=== PATIENT | female | born 1995 | race Caucasian/White ===

== ENCOUNTER 2017-06-13 18:06 | Emergency (ER) | payer BC, OTHER ==
[~2017-06-13] VITALS: Ht 149.9 cm; Wt 70.0 kg
[~2017-06-13 18:06] MED LIST: IBUP600T26 PO
[2017-06-13] MEDS: IOHEXOL 350 MG/ML 10 ML VIAL (for RAD DIAG) IVCONTRAST ONE (18:07)
[2017-06-13 18:15] VITALS: BP 155/88; PULSE 80; RESP 16; TEMP 98.2; O2SAT 100
[2017-06-13 18:39] LABS: BILIRUBIN, URINE NEG (NEG); BLOOD, URINE LARGE (NEG); GLUCOSE,URINE NEG (NEG); KETONE, URINE NEG (NEG); NITRITE,URINE NEG (NEG); URINE LEUKOCYTE ESTERASE TRACE (NEG)
[2017-06-13 18:51] LABS: BACTERIA, URINE MANY /hpf; URINE COLOR YELLOW (YELLW/STRAW)
[2017-06-13] MEDS ORDERED: SODIUM CHLOR 0.9% 1000 ML INJ 1,000 ML IV SCH (18:56)
[2017-06-13] MEDS ORDERED: ONDANSETRON HCL 4 MG/2 ML VIAL IV PUSH ONE (19:00)
[2017-06-13] MEDS ORDERED: KETOROLAC TROMETHAMINE 30 MG/ML (IVP) VIAL IV PUSH ONE (19:00)
[2017-06-13 19:20] VITALS: BP 118/83; PULSE 84; RESP 16; O2SAT 99
[2017-06-13] MEDS ORDERED: IOHEXOL 350 MG/ML 10 ML VIAL (for RAD DIAG) IVCONTRAST ONE (19:28)
[2017-06-13 19:43] LABS: BASOPHIL # 0.1 TH/MM3 (0-0.2); BASOPHIL % 0.4 % (0.0-2.0); EOSINOPHIL # 0.1 TH/MM3 (0-0.4); EOSINOPHIL % 0.5 % (0.0-4.0); HEMOGLOBIN 13.7 GM/DL (11.6-15.3); LYMPH % 20.6 % (9.0-44.0); LYMPHOCYTE # 2.9 TH/MM3 (1.0-4.8); MEAN CELL VOLUME 83.3 FL (80.0-100.0); MEAN CORPUSCULAR HEMOGLOBIN 27.2 PG (27.0-34.0); MEAN CORPUSCULAR HGB CONC 32.7 % (32.0-36.0); MEAN PLATELET VOLUME 8.3 FL (7.0-11.0); MONO % 5.4 % (0.0-8.0); MONOCYTE # 0.8 TH/MM3 (0-0.9); NEUT % 73.1 % (16.0-70.0); PLATELET COUNT 419 TH/MM3 (150-450); RED BLOOD COUNT 5.04 MIL/MM3 (4.00-5.30); RED CELL DISTRIBUTION WIDTH 12.6 % (11.6-17.2); WHITE BLOOD COUNT 13.9 TH/MM3 (4.0-11.0)
[2017-06-13 19:51] LABS: CHLORIDE 102 MEQ/L (98-107); SODIUM (NA) 136 MEQ/L (136-145)
[2017-06-13 19:54] LABS: ALBUMIN 4.2 GM/DL (3.4-5.0); CALCIUM 9.2 MG/DL (8.5-10.1); GLUCOSE,RANDOM 90 MG/DL (74-106)
[2017-06-13 19:55] LABS: BLOOD UREA NITROGEN 9 MG/DL (7-18)
[2017-06-13 19:57] LABS: ALT (GPT) 35 U/L (10-53); AST (GOT) 27 U/L (15-37)
[2017-06-13 19:58] LABS: CREATININE 0.73 MG/DL (0.50-1.00); GLOMERULAR FILTRATION RATE 100 ML/MIN (>89)
[2017-06-13 19:59] LABS: TOTAL BILIRUBIN ADULT 0.4 MG/DL (0.2-1.0); TOTAL PROTEIN 8.3 GM/DL (6.4-8.2)
[2017-06-13 20:00] LABS: ALKALINE PHOSPHATASE 97 U/L (45-117)
--- NOTE | 2017-06-13 20:00 | PD ---
HPI Chief Complaint: Flank/Kidney Pain Time Seen by Provider: 18:43 Travel History International Travel<30 days: No Contact w/Intl Traveler<30days: No Traveled to known affect area: No History of Present Illness HPI This is a 21-year-old female who presents for evaluation of right-sided lower back pain. Symptoms started 3 days ago. She describes it as a sharp pain which is constant with no obvious aggravating or alleviating factors. She denies nausea, vomiting, dysuria, fevers or chills, vaginal bleeding or discharge. She reports that she did have small amount of hematuria 2 days ago but no obvious gross hematuria since then. She has no other complaints at this time. [facility] Past Medical History Medical History: Denies Significant Hx Tetanus Vaccination: > 5 Years Influenza Vaccination: No ?: Not LMP: End April Past Surgical History Surgical History: No Previous Surgery Social History Alcohol Use: No Tobacco Use: No Substance Use: No Allergies-Medications (Allergen,Severity, Reaction): Coded Allergies: No Known Allergies (Unverified Adverse Reaction, Unknown, 06/13/17) Reported Meds & Prescriptions Reported Meds & Active Scripts Active Cephalexin Liq (Cephalexin Monohydrate) 250 Mg/5 Ml Susp 500 Mg PO BID 7 Days Review of Systems Except as stated in HPI: all other systems reviewed are Neg Physical Exam Narrative GENERAL: Well-developed well-nourished female in no acute distress SKIN: Warm and dry. HEAD: Atraumatic. Normocephalic. EYES: Pupils equal and round. No scleral icterus. No injection or drainage. ENT: No nasal bleeding or discharge. Mucous membranes pink and moist. NECK: Trachea midline. No JVD. CARDIOVASCULAR: Regular rate and rhythm. No murmur appreciated. RESPIRATORY: No accessory muscle use. Clear to auscultation. Breath sounds equal bilaterally. GASTROINTESTINAL: Abdomen soft, mild focal right lower quadrant tenderness to palpation without guarding. There is no CVA tenderness. MUSCULOSKELETAL: No obvious deformities. There is no reproducible tenderness to palpation along the spine or paravertebral musculature. NEUROLOGICAL: Awake and alert. No obvious cranial nerve deficits. Motor grossly within normal limits. Normal speech. PSYCHIATRIC: Appropriate mood and affect; insight and judgment normal. Data Data Last Documented VS Vital Signs Date Time Temp Pulse Resp B/P (MAP) Pulse Ox O2 Delivery O2 Flow Rate FiO2 06/13/17 20:15 16 06/13/17 19:20 84 118/83 (95) 99 Room Air 06/13/17 18:15 98.2 Orders Orders Urinalysis - C+S If Indicated (06/13/17 18:26) Ed Urine Pregnancytest Poc (06/13/17 18:26) Urine Culture (06/13/17 18:36) Complete Blood Count With Diff (06/13/17 18:56) Comprehensive Metabolic Panel (06/13/17 18:56) Iv Access Insert/Monitor (06/13/17 18:56) Ketorolac Inj (Toradol Inj) (06/13/17 19:00) Ondansetron Inj (Zofran Inj) (06/13/17 19:00) Sodium Chlor 0.9% 1000 Ml Inj (Ns 1000 M (06/13/17 18:56) Ct Abd/Pel W Iv Contrast(Rout) (06/13/17 19:03) Iohexol 350 Inj (Omnipaque 350 Inj) (06/13/17 18:07) Cephalexin (Keflex) (06/13/17 20:45) Ed Discharge Order (06/13/17 20:32) Potassium Chloride (Kcl) (06/13/17 20:45) Cephalexin 250 Mg/5 Ml Liq (Keflex 250 M (06/13/17 20:45) Labs Laboratory Tests Test 06/13/17 18:36 06/13/17 19:15 Urine Color YELLOW Urine Turbidity HAZY Urine pH 6.0 Urine Specific Yoder 1.015 Urine Protein 100 mg/dL Urine Glucose (UA) NEG mg/dL Urine Ketones NEG mg/dL Urine Occult Blood LARGE Urine Nitrite NEG Urine Bilirubin NEG Urine Leukocyte Esterase TRACE Urine RBC 50-99 /hpf Urine WBC 9-14 /hpf Urine Squamous Epithelial Cells 6-8 /hpf Urine Bacteria MANY /hpf Microscopic Urinalysis Comment CULTURE INDICATED White Blood Count 13.9 TH/MM3 Red Blood Count 5.04 MIL/MM3 Hemoglobin 13.7 GM/DL Hematocrit 42.0 % Mean Corpuscular Volume 83.3 FL Mean Corpuscular Hemoglobin 27.2 PG Mean Corpuscular Hemoglobin Concent 32.7 % Red Cell Distribution Width 12.6 % Platelet Count 419 TH/MM3 Mean Platelet Volume 8.3 FL Neutrophils (%) (Auto) 73.1 % Lymphocytes (%) (Auto) 20.6 % Monocytes (%) (Auto) 5.4 % Eosinophils (%) (Auto) 0.5 % Basophils (%) (Auto) 0.4 % Neutrophils # (Auto) 10.0 TH/MM3 Lymphocytes # (Auto) 2.9 TH/MM3 Monocytes # (Auto) 0.8 TH/MM3 Eosinophils # (Auto) 0.1 TH/MM3 Basophils # (Auto) 0.1 TH/MM3 CBC Comment DIFF FINAL Differential Comment Blood Urea Nitrogen 9 MG/DL Creatinine 0.73 MG/DL Random Glucose 90 MG/DL Total Protein 8.3 GM/DL Albumin 4.2 GM/DL Calcium Level 9.2 MG/DL Alkaline Phosphatase 97 U/L Aspartate Amino Transf (AST/SGOT) 27 U/L Alanine Aminotransferase (ALT/SGPT) 35 U/L Total Bilirubin 0.4 MG/DL Sodium Level 136 MEQ/L Potassium Level 3.3 MEQ/L Chloride Level 102 MEQ/L Carbon Dioxide Level 26.0 MEQ/L Anion Gap 8 MEQ/L Estimat Glomerular Filtration Rate 100 ML/MIN [facility] Medical Decision Making Medical Screen Exam Complete: Yes Emergency Medical Condition: Yes Medical Record Reviewed: Yes Interpretation(s) CONCLUSION: 1. No acute abnormality. 2. Trace amount of free fluid within the cul-de-sac. Differential Diagnosis Ureteral stone, appendicitis, ovarian torsion, colitis, diverticulitis, cystitis , pyelonephritis Narrative Course 21-year-old female with 3 days of right-sided lower back pain with no obvious aggravating factors. On examination she has mild reproducible tenderness to palpation of the right lower quadrant, no CVA tenderness or reproducible back tenderness. Urinalysis reveals large leukocytes with 9-14 wbc's, somewhat contaminated with 6 squamous epithelial cells, many bacteria, cultures pending. CT of the abdomen and pelvis is been ordered to rule out ureteral stone, appendicitis. I doubt tubo-ovarian abscess, ovarian torsion or other pelvic etiology based on examination. CBC reveals leukocytosis with WBC count of 13.9. Potassium is 3.3, otherwise CMP is unremarkable. The CT of the abdomen and pelvis reveals trace out of fluid within the cul-de-sac, no acute abnormalities. Patient was given Toradol and IV fluids with significant improvement of her symptoms. On reexamination her symptoms are minimal. The patient will be treated with Keflex for her pyuria/hematuria pending urine culture results. I did discuss signs and symptoms that would warrant returning to the emergency room. She is stable for discharge. Diagnosis Primary Impression: Cystitis Additional Impression: Hematuria Additional Instructions: Medication as prescribed. Take [id number] Tylenol or Motrin for pain. Stay well hydrated well-nourished. Return for any acutely or worsening symptoms such as severe abdominal pain, fevers, intractable vomiting. Med/Other Pt SpecificInfo: Prescription(s) given Scripts Cephalexin Liq (Cephalexin Liq) 250 Mg/5 Ml Susp 500 MG PO BID for Infection for 7 Days, #140 ML 0 Refills Prov: Kimo Bryant MD 06/13/17 Disposition: 01 DISCHARGE HOME Condition: Stable Eulalio Gonzales Jun 13, 2017 20:00
--- NOTE | 2017-06-13 20:24 | RADRPT ---
EXAM DATE/TIME: 06/13/2017 19:28 [place] COMPARISON: No previous studies available for comparison. INDICATIONS : Rigjt flank pain for 3 days IV CONTRAST: 96 cc Omnipaque 350 (iohexol) IV ORAL CONTRAST: No oral contrast ingested. RADIATION DOSE: 6.86 CTDIvol (mGy) ; Patient motion MEDICAL HISTORY : None SURGICAL HISTORY : None. ENCOUNTER: Initial ACUITY: 3 days PAIN SCALE: 9/10 LOCATION: Right flank TECHNIQUE: Volumetric scanning of the abdomen and pelvis was performed. Using automated exposure control and ad justment of the mA and/or kV according to patient size, radiation dose was kept as low as reasonably achievable to obtain optimal diagnostic quality images. DICOM format image data is available electro nically for review and comparison. FINDINGS: LOWER LUNGS: The visualized lower lungs are clear. LIVER: Homogeneous density without lesion. There is no dilation of the biliary tree. No calcified gallston es. SPLEEN: Normal size without lesion. PANCREAS: Within normal limits. KIDNEYS: Normal in size and shape. There is no mass, stone or hydronephrosis. ADRENAL GLANDS: Within normal limits. VASCULAR: There is no aortic aneurysm. BOWEL/MESENTERY: The stomach, small bowel, and colon demonstrate no acute abnormality. There is no free intraperitone al air. Trace amount of free fluid within the cul-de-sac. Appendix is normal by CT criteria. ABDOMINAL WALL: Within normal limits. RETROPERITONEUM: There is no lymphadenopathy. BLADDER: No wall thickening or mass. REPRODUCTIVE: Within normal limits. INGUINAL: There is no lymphadenopathy or hernia. MUSCULOSKELETAL: Within normal limits for patient age. CONCLUSION: 1. No acute abnormality. 2. Trace amount of free fluid within the cul-de-sac. Magdi Salazar Jr., MD on June 13, 2017 at 20:20 Board Certified Radiologist. This report was verified electronically.
[2017-06-13] MEDS ORDERED: CEPH-460 PO (20:33)
[2017-06-13] MEDS ORDERED: CEPHALEXIN MONOHYDRATE 500 MG CAP PO ONE (20:45)
[2017-06-13] MEDS ORDERED: POTASSIUM CHLORIDE 20 MEQ CONTROLLED RELEASE TAB PO ONE (20:45)
[2017-06-13] MEDS ORDERED: CEPHALEXIN MONOHYDRATE SUSP 250 MG/5 ML 100 ML BTL PO ONE (20:45)
[2017-06-13] MEDS ORDERED: CEPH250S PO (20:47)
[2017-06-13 20:55] VITALS: BP 141/76; PULSE 81; RESP 16; O2SAT 99
== END 2017-06-13 21:20 | disposition home or self-care (01) ==
LOC: PHED 18:06
DX: N30.91 Cystitis, unspecified with hematuria (principal); B96.20 Unspecified Escherichia coli [E. coli] as the cause of diseases classified elsewhere
CPT/HCPCS: 74177; 80053; 81001; 84703; 85025; 87077; 87086; 87186; 96361; 96374; 96375; 99285; J1885; J2405; J7030; Q9967